=== PATIENT | female | born 1985 | race American Indian/Alaskan Native ===

== ENCOUNTER 2018-02-07 06:59 | Emergency (ER) | payer MEDICAID ==
[2018-02-07] MEDS ORDERED: Naproxen 550 mg Tab PO STA (07:16)
[2018-02-07 07:45] LABS: HCG,QUALITATIVE URINE NEGATIVE (NEGATIVE)
[2018-02-07 07:48] LABS: SQUAMOUS EPITHIAL 6 /hpf (0-5); URINE BACTERIA RARE (<OCC); URINE BILIRUBIN NEGATIVE (NEGATIVE); URINE BLOOD 3+ (NEGATIVE); URINE CLARITY Hazy (Clear); URINE COLOR Yellow (YELLOW); URINE GLUCOSE (UA) NORMAL (Normal); URINE LEUKOCYTE ESTERASE TRACE Leu/uL (Negative); URINE PROTEIN 1+ mg/dL (NEGATIVE)
[2018-02-07] MEDS ORDERED: Naproxen 550 mg Tab PO ONE (07:52)
--- NOTE | 2018-02-07 09:02 | C.PDOC ---
History Of Present Illness 32 y/o female brought in by ambulance for complaints of dark red spotting since yesterday, associated with pelvic cramping and lower back pain. She admits to being late on her menses, LMP was approximately the first week of December. Patient states her period is normally regular. She denies any fever, dysuria, urinary frequency, vaginal discharge, n/v or other complaints. Time Seen by Provider: 02/07/18 07:08 Chief Complaint (Nursing): Female Genitourinary History Per: Patient History/Exam Limitations: no limitations Onset/Duration Of Symptoms: Days Current Symptoms Are (Timing): Still Present Quality Of Discomfort: Cramping Abnormal Vaginal Bleeding: Yes Last Menstral Period: 12/2017 Past Medical History Reviewed: Historical Data, Nursing Documentation, Vital Signs Vital Signs: Last Vital Signs Temp 99.4 F 02/07/18 10:38 Pulse 59 L 02/07/18 10:38 Resp 16 02/07/18 10:38 BP 118/79 02/07/18 10:38 Pulse Ox 99 02/07/18 10:38 - Medical History PMH: No Chronic Diseases Surgical History: No Surg Hx Family History: States: No Known Family Hx - Social History Hx Tobacco Use: No Hx Alcohol Use: Yes Hx Substance Use: Yes (MARIJUANA) - Immunization History Hx Tetanus Toxoid Vaccination: No Hx Influenza Vaccination: No Hx Pneumococcal Vaccination: No Review Of Systems Except As Marked, All Systems Reviewed And Found Negative. Constitutional: Negative for: Fever, Chills Genitourinary: Positive for: Vaginal Bleeding, Pelvic Pain. Negative for: Dysuria, Frequency Musculoskeletal: Positive for: Back Pain Physical Exam - Physical Exam Appears: Well, Non-toxic, No Acute Distress Skin: Normal Color, Warm, Dry Head: Atraumatic, Normacephalic Eye(s): bilateral: Normal Inspection, EOMI Nose: Normal Oral Mucosa: Moist Neck: Normal ROM, Supple Chest: Symmetrical Cardiovascular: Rhythm Regular Respiratory: Normal Breath Sounds, No Accessory Muscle Use, Other (Speaking in full sentences) Gastrointestinal/Abdominal: Soft, Tenderness (mild tenderness to suprapubic region), No Guarding Back: Normal Inspection, No CVA Tenderness, No Vertebral Tenderness Extremity: Bilateral: Atraumatic, Normal Color And Temperature, Normal ROM Neurological/Psych: Oriented x3, Normal Speech, Other (No focal deficits) Gait: Steady ED Course And Treatment O2 Sat by Pulse Oximetry: 100 (RA) Pulse Ox Interpretation: Normal - CT Scan/US Pelvic US Other Rad Studies (CT/US): Read By Radiologist, Radiology Report Reviewed CT/US Interpretation: Accession No. : [id number]. Patient Name / ID : LAKESHIA COLE / [id number]. Exam Date : 02/07/2018 09:11:10 ( Approved ). Study Comment : Sex / Age : F / 32Y. Creator : Paul Newton MD. Dictator : Paul Newton MD. Powerhouse Mechanic : Dental Receptionist : Paul Newton MD. Approver2 : Report Date : 02/07/2018 09:52:34. My Comment : . Pelvic ultrasound. History: Pelvic pain. Comparison: None available. Technique: Real-time sonography was performed through the pelvis utilizing transvaginal technique. Findings: Uterus: 8.6 x 3.6 x 4.6 centimeters. Anteverted. Endometrium measures 4.9 millimeters, within normal limits. No free fluid in the pelvic cul-de-sac. Right ovary: 3.1 x 1.6 x 2.6 centimeters. Normal flow. Left ovary: 5.2 x 2.5 x 3.8 centimeters. Normal flow. Large hypoechoic cyst seen at the level of the left ovary measuring up to 4.8 x 2.4 x 3.1 centimeters with an associated septated cyst within cyst appearance. Impression: Complex septated cyst seen at the level of the left ovary measuring up to 4.8 centimeters. 4-6 week interval followup may be helpful if clinically indicated. Clinical correlation. Progress Note: Patient given Naproxen 550mg PO. Ordered urinaylsis and urine test. Pending Pelvic US. Ultrasound findings discussed with patient in detail, all questions answered. On reassessment, patient is resting comfortably, with improvement of back pain and pelvic cramping. Patient remains afebrile, with no bony tenderness, extremity numbness or weakness, or abdominal pain. Patient is ambulatory in the emergency department with no signs of discomfort. 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 Reevaluation Time: 10:00 Reassessment Condition: Improved Disposition Counseled Patient/Family Regarding: Studies Performed, Diagnosis, Need For Followup, Rx Given - Disposition Disposition: HOME/ ROUTINE Disposition Time: 10:02 Condition: STABLE Additional Instructions: Follow up with your primary medical doctor or clinic in 2-5 days for further evaluation. Take medications as prescribed. Return to the emergency department at any time if symptoms persist or worsen. Prescriptions: Naproxen [Naprosyn] 1 tab PO BID PRN #20 tab PRN Reason: Pain Nitrofurantoin Macrocrystals [Macrobid] 1 cap PO BID #10 cap Instructions: Ovarian Cysts Forms: Work/School/Gym Excuse, [facility] (Swedish) - POA Present On Arrival: None - Clinical Impression Clinical Impression: Ovarian cyst, Dysmenorrhea, UTI (urinary tract infection) - PA / SENIOR INTERNAL AUDITOR / Resident Statement MD/DO has reviewed & agrees with the documentation as recorded. - Scribe Statement The provider has reviewed the documentation as recorded by the Scribe (Kristy Jaeger) All medical record entries made by the Scribe were at my direction and personally dictated by me. I have reviewed the chart and agree that the record accurately reflects my personal performance of the history, physical exam, medical decision making, and the department course for this patient. I have also personally directed, reviewed, and agree with the discharge instructions and disposition.
--- NOTE | 2018-02-07 09:54 | US ---
Pelvic ultrasound History: Pelvic pain. Comparison: None available. Technique: Real-time sonography was performed through the pelvis utilizing transvaginal technique. Findings: Uterus: 8.6 x 3.6 x 4.6 centimeters. Anteverted. Endometrium measures 4.9 millimeters, within normal limits. No free fluid in the pelvic cul-de-sac. Right ovary: 3.1 x 1.6 x 2.6 centimeters. Normal flow. Left ovary: 5.2 x 2.5 x 3.8 centimeters. Normal flow. Large hypoechoic cyst seen at the level of the left ovary measuring up to 4.8 x 2.4 x 3.1 centimeters with an associated septated cyst within cyst appearance. Impression: Complex septated cyst seen at the level of the left ovary measuring up to 4.8 centimeters. 4-6 week interval followup may be helpful if clinically indicated. Clinical correlation.
[2018-02-07 10:38] VITALS: BP 118/79; PULSE 59; RESP 16; TEMP 99.4
[2018-02-07 10:52] VITALS: O2SAT 100
== END 2018-02-07 10:50 | disposition home or self-care (01) ==
LOC: C.ER 06:59
DX: N39.0 Urinary tract infection, site not specified (principal); N94.6 Dysmenorrhea, unspecified; N83.202 Unspecified ovarian cyst, left side

== ENCOUNTER 2018-05-30 15:12 | Emergency (ER) | payer MEDICAID, OTHER ==
[2018-05-30 15:41] VITALS: O2SAT 99
[2018-05-30] MEDS ORDERED: Sodium Chloride 0.9% 1,000 ML IV ONE (15:52)
[2018-05-30] MEDS ORDERED: Acetaminophen 650mg/20.3ml solution UD PO STA (15:53)
--- NOTE | 2018-05-30 16:20 | C.PDOC ---
History Of Present Illness 32 year old female with no prior history presents to ED for evaluation of left- sided abdominal pain after eating pizza 1 day ago associated with nausea, vomiting, and diarrhea. Denies fever, hematemesis, hematochezia, and other associated symptoms. Time Seen by Provider: 05/30/18 15:46 Chief Complaint (Nursing): Abdominal Pain History Per: Patient History/Exam Limitations: no limitations Onset/Duration Of Symptoms: Days Current Symptoms Are (Timing): Still Present Past Medical History Reviewed: Historical Data, Nursing Documentation, Vital Signs Vital Signs: Last Vital Signs Temp 97.6 F 05/30/18 19:04 Pulse 58 L 05/30/18 19:04 Resp 18 05/30/18 19:04 BP 117/76 05/30/18 19:04 Pulse Ox 99 05/30/18 19:04 Surgical History: No Surg Hx Family History: States: Unknown Family Hx - Social History Hx Tobacco Use: No Hx Alcohol Use: Yes Hx Substance Use: Yes (MARIJUANA) - Immunization History Hx Tetanus Toxoid Vaccination: No Hx Influenza Vaccination: No Hx Pneumococcal Vaccination: No Review Of Systems Except As Marked, All Systems Reviewed And Found Negative. Constitutional: Negative for: Fever, Chills Gastrointestinal: Positive for: Nausea, Vomiting, Abdominal Pain (left-sided abdominal pain), Diarrhea. Negative for: Hematochezia, Hematemesis Physical Exam - Physical Exam Appears: Non-toxic, No Acute Distress Skin: Normal Color, Warm, Dry Head: Atraumatic, Normacephalic Eye(s): bilateral: Normal Inspection, PERRL, EOMI Oral Mucosa: Moist Chest: Symmetrical Cardiovascular: Rhythm Regular, No Murmur Respiratory: Normal Breath Sounds, No Accessory Muscle Use, No Rhonchi, No Wheezing Gastrointestinal/Abdominal: Bowel Sounds (active ), Soft, Tenderness (left- sided tenderness ), No Guarding, No Rebound Extremity: Bilateral: Atraumatic, Normal Color And Temperature Neurological/Psych: Oriented x3, Normal Speech Gait: Steady ED Course And Treatment - Laboratory Results Result Diagrams: 05/30/18 16:18 05/30/18 16:18 O2 Sat by Pulse Oximetry: 99 (RA) Pulse Ox Interpretation: Normal - CT Scan/US ABD/Pelvis with IV Contrast Other Rad Studies (CT/US): Read By Radiologist CT/US Interpretation: FINDINGS: LOWER THORAX: No visible consolidation, pleural effusion, or pneumothorax. LIVER: Unremarkable. GALLBLADDER AND BILE DUCTS: Unremarkable. PANCREAS: Unremarkable. SPLEEN: Unremarkable. ADRENALS: Unremarkable. KIDNEYS AND URETERS: The kidneys enhance symmetrically. No hydronephrosis or obstructing calculus identified. VASCULATURE: No aortic aneurysm. BOWEL: Stomach is nondistended. Lack of oral contrast limits evaluation for bowel pathology. No evidence of bowel obstruction Marked wall thickening and associated inflammatory changes involving the colon, particularly the distal right, transverse and left colon. Correlate clinically for colitis (i.e. Infectious, inflammatory, ischemic). APPENDIX: The appendix appears within normal limits of caliber. No secondary signs of acute appendicitis. PERITONEUM: No significant free fluid. No definite free air. LYMPH NODES: Prominent mesenteric and retroperitoneal lymph nodes, nonspecific. BLADDER: Unremarkable. REPRODUCTIVE: The uterus is present. 2.2 cm right and 2.3 cm left cystic lesions, presumably ovarian in etiology. BONES: No acute osseous abnormality is detected. OTHER FINDINGS: None. IMPRESSION: Findings as above concerning for colitis (i.e. infectious, inflammatory, ischemic) ; correlate clinically. Prominent mesenteric and retroperitoneal lymph nodes, nonspecific. Additional findings as above. Medical Decision Making Medical Decision Making: Impression: Left-sided abdominal tenderness Plan: -CT with IV contrast abdomen/pelvis -Blood work sent -Pantoprazole -Sodium chloride -Tylenol -Zofran -Urinalysis pt reassesed. ct shows colitis, likely infectious. bicarb 27 no e/o f acidosis, ischemic unlikely. abd soft no ttp. pain feels "much better" stable for outpt management. Disposition - Disposition Referrals: [facility] [Outside] [facility] [Outside] [facility] [Outside] Anil Easley MD [Staff Provider] - Disposition: HOME/ ROUTINE Disposition Time: 07:00 Condition: STABLE Additional Instructions: return to er with worsening symptoms or concerns. please follow up with specialist.you may need further testing as an outpatient with specialist. return immediately with any worsening. Prescriptions: Ciprofloxacin [Cipro] 500 mg PO BID #20 tab metroNIDAZOLE [Flagyl] 500 mg PO TID #30 tab Instructions: Bacterial Gastroenteritis, Child (DC), Ischemic Bowel Disease (DC ) Forms: [email or web address] (Croatian) - Clinical Impression Clinical Impression: Colitis - Scribe Statement The provider has reviewed the documentation as recorded by the Scribe (Emmanuelle Schmidt) Provider Attestation: All medical record entries made by the Scribe were at my direction and personally dictated by me. I have reviewed the chart and agree that the record accurately reflects my personal performance of the history, physical exam, medical decision making, and the department course for this patient. I have also personally directed, reviewed, and agree with the discharge instructions and disposition.
[2018-05-30] MEDS ORDERED: Sodium Chloride 0.9% 1,000 ML ONE ×2 (16:21→16:23)
[2018-05-30 16:25] LABS: BASO % 0.9 % (0.0-2.0); EOS % 0.4 % (0.0-4.0); HEMOGLOBIN 12.2 g/dL (11.0-16.0); LYMPH # 0.9 K/uL (1.0-4.3); LYMPH % 20.2 % (20.0-40.0); MEAN CELL VOLUME 85.3 fL (81.0-99.0); MEAN CORPUSCULAR HEMOGLOBIN 28.7 pg (27.0-31.0); MEAN CORPUSCULAR HGB CONC 33.7 g/dL (33.0-37.0); MEAN PLATELET VOLUME 7.7 fL (7.2-11.7); MONO # 0.6 K/uL (0.0-0.8); NEUT % 65.5 % (50.0-75.0); NRBC % 0.1 % (0.0-2.0); RBC 4.25 Mil/uL (3.80-5.20); RED CELL DISTRIBUTION WIDTH 14.1 % (11.5-14.5); WHITE BLOOD COUNT 4.5 K/uL (4.8-10.8)
[2018-05-30] MEDS ORDERED: Acetaminophen 650mg/20.3ml solution UD ONE (16:25)
[2018-05-30 16:27] LABS: HCG,QUALITATIVE URINE NEGATIVE (NEGATIVE)
[2018-05-30 16:31] LABS: SQUAMOUS EPITHIAL 3 /hpf (0-5); URINE BACTERIA OCC (<OCC); URINE BILIRUBIN NEGATIVE (NEGATIVE); URINE BLOOD 1+ (NEGATIVE); URINE CLARITY Clear (Clear); URINE COLOR Yellow (YELLOW); URINE GLUCOSE (UA) NORMAL (Normal); URINE LEUKOCYTE ESTERASE TRACE Leu/uL (Negative); URINE PROTEIN NEGATIVE (NEGATIVE); URINE UROBILINOGEN NORMAL mg/dL (0.2-1.0)
[2018-05-30 16:40] LABS: ALB/GLOB RATIO 1.3 (1.0-2.1); ALBUMIN 4.3 g/dL (3.5-5.0); ALT/SGPT 25 U/L (9-52); AST/SGOT 26 U/L (14-36); BILIRUBIN,DIRECT 0.4 mg/dL (0.0-0.4); BLOOD UREA NITROGEN 8 mg/dL (7-17); CALCIUM 9.5 mg/dl (8.6-10.4); GFR NON-AFRICAN AMERICAN > 60; INR 1.2; LIPASE 49 U/L (23-300); PROTHROMBIN TIME 13.4 SECONDS (9.7-12.2)
[2018-05-30] MEDS ORDERED: Iodixanol 320 MG/ML 200 ML BOTTLE IV ONE (16:53)
--- NOTE | 2018-05-30 18:28 | CT ---
Date of service: 05/30/2018 PROCEDURE: CT Abdomen and Pelvis with contrast HISTORY: abd pain, vomiting diarrhea COMPARISON: None available TECHNIQUE: Contrast dose: 100 cc visi opaque 320 Radiation dose: Total exam DLP = 994.51 mGy-cm. This CT exam was performed using one or more of the following dose reduction techniques: Automated exposure control, adjustment of the mA and/or kV according to patient size, and/or use of iterative reconstruction technique. FINDINGS: LOWER THORAX: No visible consolidation, pleural effusion, or pneumothorax. LIVER: Unremarkable. GALLBLADDER AND BILE DUCTS: Unremarkable. PANCREAS: Unremarkable. SPLEEN: Unremarkable. ADRENALS: Unremarkable. KIDNEYS AND URETERS: The kidneys enhance symmetrically. No hydronephrosis or obstructing calculus identified. VASCULATURE: No aortic aneurysm. BOWEL: Stomach is nondistended. Lack of oral contrast limits evaluation for bowel pathology. No evidence of bowel obstruction Marked wall thickening and associated inflammatory changes involving the colon, particularly the distal right, transverse and left colon. Correlate clinically for colitis (i.e. Infectious, inflammatory, ischemic). APPENDIX: The appendix appears within normal limits of caliber. No secondary signs of acute appendicitis. PERITONEUM: No significant free fluid. No definite free air. LYMPH NODES: Prominent mesenteric and retroperitoneal lymph nodes, nonspecific. BLADDER: Unremarkable. REPRODUCTIVE: The uterus is present. 2.2 cm right and 2.3 cm left cystic lesions, presumably ovarian in etiology. BONES: No acute osseous abnormality is detected. OTHER FINDINGS: None. IMPRESSION: Findings as above concerning for colitis (i.e. infectious, inflammatory, ischemic) ; correlate clinically. Prominent mesenteric and retroperitoneal lymph nodes, nonspecific. Additional findings as above.
[2018-05-30 19:06] VITALS: BP 117/76; PULSE 58; RESP 18; TEMP 97.6
== END 2018-05-30 19:06 | disposition home or self-care (01) ==
LOC: C.ER 15:12
DX: K52.9 Noninfective gastroenteritis and colitis, unspecified (principal)
CPT/HCPCS: 74177; 80053; 81001; 82248; 83690; 84703; 85025; 85610; 85730; 96361; 96374; 96375; 99284; C9113; J1885; J2405; J7030; Q9966